=== PATIENT | female | born 1965 ===

== ENCOUNTER 2018-08-25 22:01 | Observation (INO) | payer OTHER ==
[2018-08-25 23:18] LABS: SQUAMOUS EPITHIAL 1 /hpf (0-5); URINE BACTERIA OCC (<OCC); URINE BILIRUBIN NEGATIVE (NEGATIVE); URINE BLOOD 2+ (NEGATIVE); URINE CLARITY Clear (Clear); URINE COLOR Straw (YELLOW); URINE GLUCOSE (UA) NORMAL (Normal); URINE LEUKOCYTE ESTERASE NEG Leu/uL (Negative); URINE PROTEIN 1+ mg/dL (NEGATIVE); URINE UROBILINOGEN NORMAL mg/dL (0.2-1.0)
[2018-08-25 23:28] LABS: BASO % 0.4 % (0.0-2.0); EOS # 0.2 K/uL (0.0-0.7); EOS % 1.6 % (0.0-4.0); HEMOGLOBIN 13.8 g/dL (11.0-16.0); LYMPH # 4.8 K/uL (1.0-4.3); MEAN CELL VOLUME 88.8 fL (81.0-99.0); MEAN CORPUSCULAR HEMOGLOBIN 30.5 pg (27.0-31.0); MEAN CORPUSCULAR HGB CONC 34.3 g/dL (33.0-37.0); MEAN PLATELET VOLUME 7.6 fL (7.2-11.7); MONO # 0.7 K/uL (0.0-0.8); MONO % 6.7 % (0.0-10.0); NEUT # 4.1 K/uL (1.8-7.0); NEUT % 42.3 % (50.0-75.0); NRBC % 0.3 % (0.0-2.0); RBC 4.52 Mil/uL (3.80-5.20); RED CELL DISTRIBUTION WIDTH 14.4 % (11.5-14.5); WHITE BLOOD COUNT 9.7 K/uL (4.8-10.8)
[2018-08-25 23:37] LABS: ALB/GLOB RATIO 1.3 (1.0-2.1); ALBUMIN 5.4 g/dL (3.5-5.0); ALT/SGPT 52 U/L (9-52); AST/SGOT 83 U/L (14-36); BLOOD UREA NITROGEN 20 mg/dL (7-17); CALCIUM 10.9 mg/dl (8.6-10.4); GFR NON-AFRICAN AMERICAN 43; PROTHROMBIN TIME 10.4 SECONDS (9.7-12.2)
[2018-08-25 23:43] LABS: D DIMER < 200 ng/mlDDU (0-243)
[2018-08-25 23:49] LABS: B-TYPE NATRIURETIC PEPTIDE 14.8 pg/mL (0-900)
--- NOTE | 2018-08-26 00:03 | C.PDOC ---
History Of Present Illness 53-year-old female, whose PMHx includes anxiety and panic attack, presents to the ED for evaluation of sudden onset of chest pain associated with anxiety attack and shortness of breath after coming from home work today. Patient states she restarted taking her Synthroid medication 3 days ago after being noncompliant for 3 months. Patient denies shortness of breath, nausea and vomiting. Time Seen by Provider: 08/25/18 23:00 Chief Complaint (Nursing): Chest Pain History Per: Patient History/Exam Limitations: no limitations Onset/Duration Of Symptoms: Hrs, Sudden Onset Current Symptoms Are (Timing): Still Present Additional History Per: Patient Past Medical History Reviewed: Historical Data, Nursing Documentation, Vital Signs Vital Signs: Last Vital Signs Temp 97.7 F 08/25/18 22:25 Pulse 74 08/25/18 23:24 Resp 17 08/25/18 23:24 BP 172/79 H 08/25/18 23:24 Pulse Ox 98 08/25/18 23:24 Primary Care Provider: Non [facility] Provider, - Medical History PMH: HTN, Hypothyroidism Surgical History: No Surg Hx Family History: States: Unknown Family Hx - Social History Hx Alcohol Use: No Hx Substance Use: No Review Of Systems Cardiovascular: Positive for: Chest Pain Respiratory: Negative for: Shortness of Breath Gastrointestinal: Negative for: Nausea, Vomiting Psych: Positive for: Anxiety Physical Exam - Physical Exam Appears: Non-toxic, No Acute Distress, Other (obese [place] female, anxious ) Skin: Normal Color, Warm, Dry Head: Atraumatic, Normacephalic, Other (plethoric face ) Eye(s): bilateral: Normal Inspection Oral Mucosa: Moist Neck: Supple Chest: Symmetrical, No Deformity, No Tenderness Cardiovascular: Rhythm Regular, No Murmur Respiratory: Normal Breath Sounds, No Rales, No Rhonchi, No Wheezing Extremity: Normal ROM, Capillary Refill (less than 2 seconds ) Neurological/Psych: Oriented x3, Normal Speech, Normal Cognition ED Course And Treatment - Laboratory Results Result Diagrams: 08/25/18 23:22 08/25/18 23:22 Lab Results: PT 10.4 SECONDS (9.7-12.2) 08/25/18 23:22 INR 1.0 08/25/18 23:22 APTT 38.0 SECONDS (21-34) H 08/25/18 23:22 D-Dimer, Quantitative < 200 ng/mlDDU (0-243) 08/25/18 23:22 Troponin I < 0.0120 ng/mL (0.00-0.120) 08/25/18 23:22 NT-Pro-B Natriuret Pep 14.8 pg/mL (0-900) 08/25/18 23:22 Total Bilirubin 0.5 mg/dL (0.2-1.3) 08/25/18 23:22 AST 83 U/L (14-36) H 08/25/18 23:22 ALT 52 U/L (9-52) 08/25/18 23:22 Alkaline Phosphatase 89 U/L (38-126) 08/25/18 23:22 Total Protein 9.6 g/dL (6.3-8.3) H 08/25/18 23:22 Albumin 5.4 g/dL (3.5-5.0) H 08/25/18 23:22 Globulin 4.2 gm/dL (2.2-3.9) H 08/25/18 23:22 Albumin/Globulin Ratio 1.3 (1.0-2.1) 08/25/18 23:22 Urine Color Straw (YELLOW) 08/25/18 23:08 Urine Clarity Clear (Clear) 08/25/18 23:08 Urine pH 6.0 (5.0-8.0) 08/25/18 23:08 Ur Specific [place] 1.005 (1.003-1.030) 08/25/18 23:08 Urine Protein 1+ mg/dL (NEGATIVE) H 08/25/18 23:08 Urine Glucose (UA) Normal mg/dL (Normal) 08/25/18 23:08 Urine Ketones Negative mg/dL (NEGATIVE) 08/25/18 23:08 Urine Blood 2+ (NEGATIVE) H 08/25/18 23:08 Urine Nitrate Negative (NEGATIVE) 08/25/18 23:08 Urine Bilirubin Negative (NEGATIVE) 08/25/18 23:08 Urine Urobilinogen Normal mg/dL (0.2-1.0) 08/25/18 23:08 Ur Leukocyte Esterase Neg Mannie/uL (Negative) 08/25/18 23:08 Urine WBC (Auto) 2 /hpf (0-5) 08/25/18 23:08 Urine RBC (Auto) 17 /hpf (0-3) H 08/25/18 23:08 Ur Squamous Epith Cells 1 /hpf (0-5) 08/25/18 23:08 Urine Bacteria Occ (<OCC) H 08/25/18 23:08 Lab Interpretation: Normal (d-dimer, trop, bnp neg.) ECG: Interpreted By Me ECG Rhythm: Sinus Rhythm, ST/T Changes (T^ inversions V2, v3) ECG Interpretation: Normal, Abnormal Rate From EC O2 Sat by Pulse Oximetry: 98 (on RA) Pulse Ox Interpretation: Normal - Radiology CXR: Interpreted by Me CXR Interpretation: Yes: No Acute Disease Progress Note: Bloodwork, urinalysis, EKG, CXR ordered and reviewed. Xanax PO given. Reevaluation Time: 00:02 Reassessment Condition: Improved Medical Decision Making Medical Decision Makin: d/w Dr. Patterson, Medicine Shoe Repairer- ok to Tele Obs. Disposition Doctor Will See Patient In The: Hospital Counseled Patient/Family Regarding: Studies Performed, Diagnosis - Disposition Disposition: HOSPITALIZED Disposition Time: 00:02 Condition: GOOD - Clinical Impression Clinical Impression: Chest pain, Panic attack, Abnormal EKG - Scribe Statement The provider has reviewed the documentation as recorded by the Scribe (Jie Godoy) Provider Attestation: All medical record entries made by the Scribe were at my direction and personally dictated by me. I have reviewed the chart and agree that the record accurately reflects my personal performance of the history, physical exam, medical decision making, and the department course for this patient. I have also personally directed, reviewed, and agree with the discharge instructions and disposition.
[2018-08-26 00:49] VITALS: RESP 20
[2018-08-26] MEDS ORDERED: Pneumococcal 23-Valent Vaccine IM ONE (01:05)
[2018-08-26] MEDS: Levothyroxine 100 MCG TAB PO SCH ×2 (06:27→08:07)
[2018-08-26 09:05] LABS: CK-MB 5.68 ng/mL (0.0-3.38)
--- NOTE | 2018-08-26 09:51 | CP.PCM.CON ---
History of Present Illness - History of Present Illness History of Present Illness: I was asked to see patient by Dr Zhang. Patient seen 08/26/18 619 Patient is a 53 year old female with HTN who presents with chest pain. She describes the onset of substernal chest pressrue while walking from home. Symptoms became progressive and were associated with dyspnea. She took aspirin and came to the ER. Her chest pain was resolved upon arrival. Review of Systems - Constitutional Constitutional: absent: As Per HPI, Anorexia, Chills, Daytime Sleepiness, Excessive Sweating, Fatigue, Fever, Frequent Falls, Headache, Increased Appetite, Lethargy, Malaise, Night Sweats, Snoring, Sleep Apnea, Weight Gain, Weight Loss, Weakness, Other - EENT Eyes: absent: As Per HPI, Blind Spots, Blurred Vision, Change in Vision, D ecreased Night Vision, Diplopia, Discharge, Dry Eye, Exophthalmos, Floaters, Irritation, Itchy Eyes, Loss of Peripheral Vision, Pain, Photophobia, Requires Corrective Lenses, Sees Flashes, Spots in Vision, Tunnel Vision, Other Visual Disturbances, Loss of Vision, Other Ears: absent: As Per HPI, Decreased Hearing, Ear Discharge, Ear Pain, Tinnitus, Abnormal Hearing, Disequilibrium, Dizziness, Other Nose/Mouth/Throat: absent: As Per HPI, Epistaxis, Nasal Congestion, Nasal Discharge, Nasal Obstruction, Nasal Trauma, Nose Pain, Post Nasal Drip, Sinus Pain, Sinus Pressure, Bleeding Gums, Change in Voice, Dental Pain, Dry Mouth, Dysphagia, Halitosis, Hoarsness, Lip Swelling, Mouth Lesions, Mouth Pain, Odynophagia, Sore Throat, Throat Swelling, Tongue Swelling, Facial Pain, Neck Pain, Neck Mass, Other - Breasts Breasts: absent: As Per HPI, Change in Shape, Mass, Pain, Nipple Discharge, Nipple Inversion, Skin Changes, Swelling, Other - Cardiovascular Cardiovascular: Chest Pain - Respiratory Respiratory: Dyspnea - Gastrointestinal Gastrointestinal: absent: As Per HPI, Abdominal Pain, Belching, Bloating, Change in Bowel Habits, Change in Stool Character, Coffee Ground Emesis, Constipation, Cramping, Diarrhea, Dyspepsia, Dysphagia, Early Satiety, Excessive Flatus, Fecal Incontinence, Heartburn, Hematemesis, Hematochezia, Loose Stools, Melena, Nausea, Odynophagia, Temesmus, Vomiting, Other - Genitourinary Genitourinary: absent: As Per HPI, Change in Urinary Stream, Difficulty Urinating, Dysuria, Flank Pain, Hematuria, Pyuria, Nocturia, Urinary Incontinence, Urinary Frequency, Urinary Hesitance, Urinary Urgency, Voiding Freq/Small Amts, Freq UTI, Hx Renal/Bladder Calculi, Hx /Renal Surgery, Bladder Distension, Other - Musculoskeletal Musculoskeletal: absent: As Per HPI, Abnormal Gait, Arthralgias, Atrophy, Back Pain, Deformity, Joint Swelling, Limited Range of Motion, Loss of Height, Muscle Cramps, Muscle Weakness, Myalgias, Neck Pain, Numbness, Radiating Pain into Limb, Stiffness, Tingling, Other - Integumentary Integumentary: absent: As Per HPI, Acne, Alopecia, Bleeding Lesions, Change in Hair, Change in Nails, Change in Pigmentation, Changing Lesions, Dry Skin, Erythema, Furuncle, Hirsutism, Lesions, New Lesions, Non-Healing Lesions, Photosensitivity, Pruritus, Rash, Skin Pain, Skin Ulcer, Sores, Striae, Swelling, Unusual Bruising, Wounds, Jaundice, Other - Neurological Neurological: absent: As Per HPI, Abnormal Gait, Abnormal Hearing, Abnormal Movements, Abnormal Speech, Behavioral Changes, Burning Sensations, Confusion, Convulsions, Disequilibrium, Dizziness, Numbness, Focal Weakness, Frequent Fal ls, Headaches, Lack of Coordination, Loss of Vision, Memory Loss, Paresthesias, Radicular Pain, Restless Legs, Sensory Deficit, Syncope, Tingling, Tremor, Vertigo, Weakness, Other Visual Disturbances, Other - Psychiatric Psychiatric: absent: As Per HPI, Abnormal Sleep Pattern, Anhedonia, Anxiety, Auditory Hallucinations, Behavioral Changes, Change in Appetite, Change in Libido, Confusion, Depression, Difficulty Concentrating, Hallucinations, Homicidal Ideation, Hopelessness, Irritability, Memory Loss, Mood Swings, Panic Attacks, Paranoia, Suicidal Ideation, Visual Hallucinations, Tactile Hallucinations, Other - Endocrine Endocrine: absent: As Per HPI, Change in Body Appearance, Change in Libido, Cold Intolorance, Deepening of Voice, Excessive Sweating, Fatigue, Flushing, Heat Intolorance, Increase in Ring/Shoe/Hat Size, Palpitations, Polydipsia, Polyphagia, Polyuria, Other - Hematologic/Lymphatic Hematologic: absent: As Per HPI, Easy Bleeding, Easy Bruising, Lymphadenopathy, Other Past Patient History - Past Social History Smoking Status: Former Smoker - CARDIAC Hx Hypertension: Yes - ENDOCRINE/METABOLIC Hx Hypothyroidism: Yes - PSYCHIATRIC Hx Substance Use: No Meds Allergies/Adverse Reactions: Allergies Allergy/AdvReac Type Severity Reaction Status Date / Time No Known Allergies Allergy Verified 08/25/18 22:24 - Medications Medications: Current Medications Aspirin (Aspirin) 325 mg PO DAILY [facility] Enoxaparin Sodium (Lovenox) 40 mg SC DAILY [facility] Home Med (Irbesartan [Irbesartan]) 150 mg PO DAILY [facility] Levothyroxine Sodium (Synthroid) 100 mcg PO ACB [facility] Last Admin: 08/26/18 08:07 Dose: Not Given Pneumococcal Polyvalent Vaccine (Pneumovax 23 Vaccine) 0.5 ml IM .ONCE ONE Stop: 08/28/18 10:01 Physical Exam - Constitutional Appears: Non-toxic - Head Exam Head Exam: NORMAL INSPECTION - Eye Exam Eye Exam: Normal appearance Pupil Exam: NORMAL ACCOMODATION - ENT Exam ENT Exam: Mucous Membranes Moist, Normal Exam, Normal Oropharynx - Neck Exam Neck exam: Positive for: Lymphadenopathy, Normal Inspection. Negative for: Tenderness, Thyromegaly - Respiratory Exam Respiratory Exam: NORMAL BREATHING PATTERN - Cardiovascular Exam Cardiovascular Exam: REGULAR RHYTHM, RRR - GI/Abdominal Exam GI & Abdominal Exam: Normal Bowel Sounds, Soft - Rectal Exam Rectal Exam: Deferred - Extremities Exam Extremities exam: Positive for: full ROM, pedal pulses present. Negative for: pedal edema, tenderness - Back Exam Back exam: NORMAL INSPECTION - Neurological Exam Neurological exam: Alert, Oriented x3 - Psychiatric Exam Psychiatric exam: Normal Mood - Skin Skin Exam: Warm Results - Vital Signs Recent Vital Signs: Last Vital Signs Temp 98.1 F 08/26/18 07:00 Pulse 66 08/26/18 07:05 Resp 20 08/26/18 07:00 BP 109/68 08/26/18 07:00 Pulse Ox 97 08/26/18 07:15 - Labs Result Diagrams: 08/25/18 23:22 08/25/18 23:22 Labs: Laboratory Results - last 24 hr 08/25/18 08/25/18 08/25/18 23:08 23:22 23:22 WBC 9.7 RBC 4.52 Hgb 13.8 Hct 40.1 MCV 88.8 MCH 30.5 MCHC 34.3 RDW 14.4 Plt Count 279 MPV 7.6 Neut % (Auto) 42.3 L Lymph % (Auto) 49.0 H [place] % (Auto) 6.7 Eos % (Auto) 1.6 Baso % (Auto) 0.4 Neut # (Auto) 4.1 Lymph # (Auto) 4.8 H [place] # (Auto) 0.7 Eos # (Auto) 0.2 Baso # (Auto) 0.0 PT 10.4 INR 1.0 APTT 38.0 H D-Dimer, Quantitative < 200 Sodium Potassium Chloride Carbon Dioxide Anion Gap BUN Creatinine Est GFR ( Amer) Est GFR (Non-Af Amer) Random Glucose Calcium Total Bilirubin AST ALT Alkaline Phosphatase Total Creatine Kinase CK-MB (Mass) Troponin I NT-Pro-B Natriuret Pep Total Protein Albumin Globulin Albumin/Globulin Ratio Urine Color Straw Urine Clarity Clear Urine pH 6.0 Ur Specific [place] 1.005 Urine Protein 1+ H Urine Glucose (UA) Normal Urine Ketones Negative Urine Blood 2+ H Urine Nitrate Negative Urine Bilirubin Negative Urine Urobilinogen Normal Ur Leukocyte Esterase Neg Urine WBC (Auto) 2 Urine RBC (Auto) 17 H Ur Squamous Epith Cells 1 Urine Bacteria Occ H 08/25/18 08/26/18 23:22 08:30 WBC RBC Hgb Hct MCV MCH MCHC RDW Plt Count MPV Neut % (Auto) Lymph % (Auto) [place] % (Auto) Eos % (Auto) Baso % (Auto) Neut # (Auto) Lymph # (Auto) [place] # (Auto) Eos # (Auto) Baso # (Auto) PT INR APTT D-Dimer, Quantitative Sodium 141 Potassium 3.8 Chloride 100 Carbon Dioxide 25 Anion Gap 20 BUN 20 H Creatinine 1.3 H Est GFR ( Amer) 52 Est GFR (Non-Af Amer) 43 Random Glucose 112 H Calcium 10.9 H Total Bilirubin 0.5 AST 83 H ALT 52 Alkaline Phosphatase 89 Total Creatine Kinase 1371 H CK-MB (Mass) 5.68 H Troponin I < 0.0120 < 0.0120 NT-Pro-B Natriuret Pep 14.8 Total Protein 9.6 H Albumin 5.4 H Globulin 4.2 H Albumin/Globulin Ratio 1.3 Urine Color Urine Clarity Urine pH Ur Specific [place] Urine Protein Urine Glucose (UA) Urine Ketones Urine Blood Urine Nitrate Urine Bilirubin Urine Urobilinogen Ur Leukocyte Esterase Urine WBC (Auto) Urine RBC (Auto) Ur Squamous Epith Cells Urine Bacteria - EKG Data EKG Interpreted by: Myself EKG shows normal: Sinus rhythm Assessment & Plan (1) Chest pain Assessment and Plan: ruled out for myocardial infarction. has cardiovascular risk factors. STable for discharge. recommend outpatient stress test. Echo reviewed. normal LV function and wall motion. Status: Acute (2) HTN (hypertension) Assessment and Plan: blood pressure control Status: Acute (3) Aortic regurgitation Assessment and Plan: mild by echo. will monitor outpatient. Status: Acute
[2018-08-26] MEDS ORDERED: Enoxaparin 40 mg Syringe SC SCH (10:00)
[2018-08-26] MEDS ORDERED: IRBESARTAN 150 MG PO SCH (10:00)
--- NOTE | 2018-08-26 11:11 | RAD ---
Date of service: 08/25/2018 PROCEDURE: CHEST RADIOGRAPH, 1 VIEW HISTORY: SOB COMPARISON: None available. FINDINGS: LUNGS: Clear. PLEURA: No pneumothorax or pleural fluid seen. CARDIOVASCULAR: No aortic atherosclerotic calcification present. Normal. OSSEOUS STRUCTURES: No significant abnormalities. VISUALIZED UPPER ABDOMEN: Normal. OTHER FINDINGS: None. IMPRESSION: No active disease.
[2018-08-26 12:27] VITALS: O2SAT 98
--- NOTE | 2018-08-26 14:21 | CARD ---
APPROVED REPORT Date of service: 08/26/2018 EXAM: Two-dimensional and M-mode echocardiogram with Doppler and color Doppler. INDICATION Abnormal EKG/Arrhythmia Chest Pain 2D DIMENSIONS IVSd0.8 (0.7-1.1cm)Aortic Root (2D)2.8 (2.0-3.7cm) LVDd4.5 (3.9-5.9cm)PWd0.7 (0.7-1.1cm) LA Aalfyv15 (18-58mL)LVDs2.2 (2.5-4.0cm) FS (%) 40.0 %LVEF (%)70.0 (>50%) LVEF (Waddell's)65.94 %IVC0.00 cm M-Mode DIMENSIONS Left Atrium (MM)3.55 (2.5-4.0cm)IVSd0.79 (0.7-1.1cm) Aortic Root2.47 (2.2-3.7cm)LVDd4.56 (4.0-5.6cm) Aortic Cusp Exc.1.89 (1.5-2.0cm)PWd0.73 (0.7-1.1cm) FS (%) 36 %LVDs2.92 (2.0-3.8cm) LVEF (%)66 (>50%) Aortic Valve AI P 1/2 [id number] Mitral Valve MV E Bldghfby44.6cm/sMV A Lbmhlhqx70.4cm/sE/A ratio1.1 TDI Lateral E' Peak V7.06cm/sMedial E' Peak V4.61cm/sE/Lateral E'8.4 E/Medial E'12.9 Tricuspid Valve TR Peak Kutrtkpx967zc/sTR Peak Gr.79gvMrPMPA56dpTo LEFT VENTRICLE The left ventricle is normal size. There is normal left ventricular wall thickness. Left ventricle systolic function is normal. The Ejection Fraction is 65-70%. There is normal LV segmental wall motion. The left ventricular diastolic function is normal. There is no ventricular septal defect visualized. RIGHT VENTRICLE The right ventricle is normal size. The right ventricular systolic function is normal. ATRIA The left atrium size is normal. The right atrium size is normal. AORTIC VALVE The aortic valve is mildly sclerotic. The aortic valve is tri-cuspid. There is trace aortic regurgitation. There is no aortic valvular stenosis. MITRAL VALVE The mitral valve is normal in structure. There is no evidence of mitral valve prolapse. Mitral regurgitation is trace. TRICUSPID VALVE The tricuspid valve is normal in structure. There is trace tricuspid regurgitation. Right ventricular systolic pressure is estimated at less than 30 mmHg. There is no pulmonary hypertension. PULMONIC VALVE The pulmonic valve is not well visualized. There is trace pulmonic valvular regurgitation. GREAT VESSELS The aortic root is normal in size. The ascending aorta is normal in size. The IVC is normal in size and collapses >50% with inspiration. PERICARDIAL EFFUSION There is no pericardial effusion. <Conclusion> Left ventricle systolic function is normal. The Ejection Fraction is 65-70%. The left ventricular diastolic function is normal. There is trace aortic regurgitation. Mitral regurgitation is trace.
[2018-08-26 15:39] VITALS: BP 127/78; TEMP 97.9
[2018-08-26 15:56] VITALS: PULSE 70
--- NOTE | 2018-08-26 17:17 | CP.PCM.PN ---
Objective - Vital Signs/Intake and Output Vital Signs (last 24 hours): Temp Pulse Resp BP Pulse Ox 97.9 F 70 20 127/78 98 08/26/18 15:00 08/26/18 15:15 08/26/18 15:00 08/26/18 15:00 08/26/18 16:00 Intake and Output: 08/26/18 08/26/18 06:59 18:59 Intake Total 100 Balance 100 - Labs Labs: 08/25/18 23:22 08/25/18 23:22 PT 10.4 SECONDS (9.7-12.2) 08/25/18 23:22 INR 1.0 08/25/18 23:22 APTT 38.0 SECONDS (21-34) H 08/25/18 23:22 Assessment and Plan - Assessment and Plan (Free Text) Assessment: 53 year old female admitted with chest pain seen and examined. Alert, oriented, no chest pain ordistress noted. Discussed with DR Zhang and DR Plaza, plan to discharge home and follow up in 1 week. CK elevated, patient is asymptomatic, advised to increase oral fluids at home.
[2018-08-27] MEDS ORDERED: IRBESARTAN 150 MG PO SCH (10:00)
--- NOTE | 2018-08-27 20:55 | HP ---
HISTORY OF PRESENT ILLNESS: The patient is a 53-year-old female chief complaints chest pain, ____ shortness of breath. The patient came to the ER, advised admission. The patient has a history of hypothyroidism and hypertension. FAMILY HISTORY: Father had heart disease. PHYSICAL EXAMINATION: GENERAL: The patient is awake, alert, and oriented. HEENT: Within normal limits. NECK: Supple. CHEST: Symmetrical. HEART: Regular. ABDOMEN: Soft. EXTREMITIES: No edema. IMPRESSION AND PLAN: The patient is to rule out acute coronary syndrome. The patient is to get bedrest, supportive care. Meg Zhang MD
[2018-08-28] MEDS ORDERED: Pneumococcal 23-Valent Vaccine IM ONE (10:00)
--- NOTE | 2018-08-28 12:42 | CARD ---
APPROVED REPORT Date of service: 08/25/2018 EKG Measurement Heart [id number] <Conclusion> Normal sinus rhythm Low voltage QRS T wave abnormality, consider anterior ischemia Abnormal ECG
== END 2018-08-26 16:19 | disposition home or self-care (01) ==
LOC: C.ER 22:01 → C.5S 23:59
PROVIDERS: ADMIT Internal Medicine Pulmonary Disease; ATTEND Internal Medicine Pulmonary Disease
DX: R07.89 Other chest pain (principal); I10 Essential (primary) hypertension; R94.31 Abnormal electrocardiogram [ECG] [EKG]; E03.9 Hypothyroidism, unspecified; F41.0 Panic disorder [episodic paroxysmal anxiety]; F41.1 Generalized anxiety disorder; I35.1 Nonrheumatic aortic (valve) insufficiency; Z87.891 Personal history of nicotine dependence; Z91.19 Patient's noncompliance with other medical treatment and regimen; Z82.49 Family history of ischemic heart disease and other diseases of the circulatory system
CPT/HCPCS: 36415; 71045; 80053; 81001; 83880; 84484; 85025; 85378; 85610; 85730; 93306; 99285; G0378